=== PATIENT | male | born 1960 | race Caucasian/White ===

== ENCOUNTER 2017-05-09 11:58 | Emergency (ER) | payer OTHER ==
[~2017-05-09] VITALS: Ht 185.4 cm; Wt 125.0 kg
[2017-05-09 12:49] LABS: HEMATOCRIT 51.5 % (39.2-51.8); HEMOGLOBIN 17.9 g/dL (13.7-18.0); WHITE BLOOD COUNT 5.6 x10^3/uL (3.4-10)
[2017-05-09 12:59] LABS: BLOOD UREA NITROGEN 13 mg/dL (7-18)
[2017-05-09 15:29] VITALS: BP 203/129
== END 2017-05-09 15:32 | disposition home or self-care (01) ==
LOC: ED 13:53
DX: N30.01 Acute cystitis with hematuria (principal); I10 Essential (primary) hypertension
CPT/HCPCS: 36415; 74176; 80048; 81001; 82040; 85025; 85610; 85730; 87086; 99285

== ENCOUNTER 2018-06-20 09:50 | Emergency (ER) | payer OTHER ==
[~2018-06-20] VITALS: Ht 185.4 cm; Wt 130.4 kg
--- NOTE | 2018-06-20 10:15 | NUR ---
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
--- NOTE | 2018-06-20 10:31 | NUR ---
patient seated at edge of bed, 5/10 pain in L flank/thoracic back. faded bruised noted to this area, tender to palpation. VS show BP of 189/118, patient has call light in reach, MD Shanks has just come to bedside for assessment.
[2018-06-20] MEDS ORDERED: ACETAMINOPHEN 500 MG TABLET ONE (10:41)
[2018-06-20] MEDS ORDERED: KETOROLAC 30 MG/1 ML ONE (10:41)
[2018-06-20] MEDS ORDERED: KETOROLAC 30 MG/1 ML IM ONE (11:00)
[2018-06-20] MEDS ORDERED: ACETAMINOPHEN 500 MG TABLET PO ONE (11:00)
[2018-06-20 11:35] VITALS: BP 159/91
== END 2018-06-20 11:37 | disposition home or self-care (01) ==
LOC: ED 11:25
DX: S20.212A Contusion of left front wall of thorax, initial encounter (principal); I10 Essential (primary) hypertension; W19.XXXA Unspecified fall, initial encounter; Y93.89 Activity, other specified; Y92.89 Other specified places as the place of occurrence of the external cause; Y99.8 Other external cause status
CPT/HCPCS: 71101; 96372; 99283; J1885

== ENCOUNTER 2018-08-09 13:57 | Emergency (ER) | payer OTHER ==
[~2018-08-09] VITALS: Ht 185.4 cm; Wt 127.2 kg
[2018-08-09 14:22] VITALS: BP 188/108
[2018-08-09] MEDS ORDERED: DIAZEPAM 5 MG TABLET PO ONE (14:30)
[2018-08-09] MEDS ORDERED: KETOROLAC 30 MG/1 ML IM ONE (14:30)
[2018-08-09] MEDS ORDERED: DIAZEPAM 5 MG TABLET ONE (15:25)
[2018-08-09] MEDS ORDERED: KETOROLAC 30 MG/1 ML ONE (15:25)
[2018-08-09] MEDS ORDERED: HYDROmorphone 1 MG/ML, 1ML ONE (15:29)
[2018-08-09] MEDS ORDERED: HYDROmorphone 1 MG/ML, 1ML IM ONE (15:30)
--- NOTE | 2018-08-09 16:04 | NUR ---
REPORT TO JAMES Bills RN
== END 2018-08-09 16:08 | disposition home or self-care (01) ==
LOC: ED 15:52
DX: S39.012A Strain of muscle, fascia and tendon of lower back, initial encounter (principal); M54.16 Radiculopathy, lumbar region; M54.41 Lumbago with sciatica, right side; I10 Essential (primary) hypertension; X58.XXXA Exposure to other specified factors, initial encounter; Y93.89 Activity, other specified; Y92.89 Other specified places as the place of occurrence of the external cause; Y99.8 Other external cause status
CPT/HCPCS: 96372; 99283; J1170; J1885